=== PATIENT | female | born 1965 | race Caucasian/White ===

== ENCOUNTER 2016-10-04 08:10 | Emergency (ER) | payer MEDICAID ==
[~2016-10-04] VITALS: Ht 177.8 cm; Wt 97.7 kg
[2016-10-04] MEDS ORDERED: MORPHINE SULFATE 4 MG/ML, 1ML ONE (08:53)
[2016-10-04] MEDS ORDERED: ONDANSETRON 2MG/ML, 2ML ONE (08:53)
[2016-10-04] MEDS ORDERED: SODIUM CHLORIDE FLUSH 10ML SYR IVF ONE (09:00)
[2016-10-04] MEDS ORDERED: MORPHINE SULFATE 4 MG/ML, 1ML IVPush PRN (09:00)
[2016-10-04] MEDS ORDERED: ONDANSETRON 2MG/ML, 2ML IVPush ONE (09:00)
[2016-10-04] MEDS ORDERED: SODIUM CHLORIDE 0.9% 1,000ML IVBOLUS ONE (09:00)
[2016-10-04 09:26] LABS: BLOOD UREA NITROGEN 13 mg/dL (7-18)
[2016-10-04 10:59] VITALS: BP 136/56
== END 2016-10-04 11:01 | disposition home or self-care (01) ==
LOC: ED 09:33
DX: G44.221 Chronic tension-type headache, intractable (principal); E03.9 Hypothyroidism, unspecified; E11.9 Type 2 diabetes mellitus without complications; Z88.8 Allergy status to other drugs, medicaments and biological substances
CPT/HCPCS: 36415; 70450; 72125; 80048; 82040; 85025; 85651; 96361; 96374; 96375; 99285; J2405; J7030